=== PATIENT | female | born 1990 | race Caucasian/White ===

== ENCOUNTER 2021-10-29 23:10 | Emergency (ER) | payer OTHER ==
[~2021-10-29] VITALS: Ht 160 cm; Wt 87.7 kg
[2021-10-29] MEDS ORDERED: CITA10TA99 PO (23:16)
[2021-10-29] MEDS ORDERED: PROP10TA73 PO (23:16)
[2021-10-29] MEDS ORDERED: ACET-784 PO (23:16)
[2021-10-29] MEDS ORDERED: IBUP-2070 PO (23:16)
[2021-10-29 23:58] LABS: APPEARANCE,URINE CLEAR (CLEAR); BILIRUBIN,URINE NEGATIVE (NEGATIVE); GLUCOSE, URINE (UA) NEGATIVE (NEGATIVE); KETONES,URINE NEGATIVE (NEGATIVE); LEUKOCYTE ESTERASE ,URINE SMALL (NEGATIVE); NITRATE,URINE POSITIVE (NEGATIVE); OCCULT BLOOD,URINE SMALL (NEGATIVE); PH,URINE 5.5 (5.0-8.0); PROTEIN,URINE POS 1+ (NEGATIVE); UROBILINOGEN,URINE 0.2 mg/dL (<=1.0)
[2021-10-30 00:11] LABS: BACTERIA,URINE Moderate /HPF (None Seen); WBC,URINE 51-100 /HPF (0-5)
[2021-10-30] MEDS ORDERED: NITROFURANTOIN/NITROFURAN MAC 100 MG CAPSULE [MACROBID] PO ONE (00:30)
[2021-10-30 00:31] VITALS: BP 140/83
== END 2021-10-30 00:45 | disposition home or self-care (01) ==
LOC: EMS 23:12
DX: N39.0 Urinary tract infection, site not specified (principal); Z79.899 Other long term (current) drug therapy
CPT/HCPCS: 81001; 84703; 87086; 99283